=== PATIENT | female | born 1960 | race American Indian/Alaskan Native ===

== ENCOUNTER 2021-09-08 22:55 | Observation (INO) | payer OTHER ==
[2021-09-09 00:39] LABS: BUN/Creatinine Ratio 15; Blood Urea Nitrogen 12 mg/dL (7-17); Hemolysis Index 18
[2021-09-09 00:40] LABS: Basophils # (Auto) 0.1 K/mm3 (0.0-0.1); Basophils % (Auto) 0.8 % (0.0-1.8); Eosinophils # (Auto) 0.3 K/mm3 (0.0-0.4); Eosinophils % (Auto) 4.3 % (0.0-4.3); Hemoglobin 11.6 gm/dl (10.1-14.3); Lymphocytes % (Auto) 26.3 % (13.4-35.0); Mean Corpuscular HGB Conc 32 % (30-34); Mean Corpuscular Volume 82 fl (79-97); Monocytes # (Auto) 0.8 K/mm3 (0.0-0.8); Monocytes % (Auto) 10.6 % (0.0-7.3); Platelet Count 188 K/mm3 (140-440); Red Blood Count 4.49 M/mm3 (3.65-5.03); Red Cell Distribution Width 15.6 % (13.2-15.2)
--- NOTE | 2021-09-09 00:43 | XRay Report ---
CHEST 2 VIEWS INDICATION: Chest Pain. COMPARISON: None. FINDINGS: Support devices: None. Heart: Within normal limits. The aorta is tortuous and ectatic. Lungs/Pleura: Mild increased interstitial markings without localized infiltrate. No significant ple ural effusion. IMPRESSION: 1. No acute infiltrate. 2. Probable chronic interstitial thickening. Signer Name: Tavo Arriaza MD Signed: 09/09/2021 12:39 AM Workstation Name: [id number]
[2021-09-09] MEDS ORDERED: NITROGLYCERIN 2% OINT 1 GM TP ONE (07:31)
[2021-09-09] MEDS ORDERED: ASPIRIN 325 MG TAB PO ONE (07:31)
[2021-09-09] MEDS ORDERED: fentaNYL 100 MCG/2 ML INJ IV ONE (07:31)
--- NOTE | 2021-09-09 07:35 | Emergency Department Report ---
HPI - General Chief Complaint: Chest Pain Time Seen by Provider: 09/09/21 07:21 - HPI HPI: Room 25 The patient is a 60-year-old female present with chief complaint of chest pain. Patient states her symptoms began yesterday afternoon at 1400 with left-sided chest pain this been squeezing and intermittent in nature. Patient denies shortness of breath, nausea/vomiting or diaphoresis with the pain. Patient currently gives her chest squeezing a score of 4/10. Patient states her last stress test occurred approximate 3 years ago her last cardiac catheterization was well over 5 years ago ED Past Medical Hx - Past Medical History Hx Hypertension: Yes Hx Deep Vein Thrombosis: Yes Hx Asthma: Yes - Surgical History Hx Cholecystectomy: Yes Additional Surgical History: Hysterectomy - Family History Family history: no significant - Social History Smoking Status: Never Smoker Substance Use Type: None (Denies illicit drug use) - Medications Home Medications: Home Medications Medication Instructions Recorded Confirmed Last Taken Type Lisinopril/Hydrochlorothiazide 1 tab PO QDAY 12/11/14 12/11/14 Unknown History [Zestoretic 20-25 mg] hydrALAZINE [Apresoline TAB] 25 mg PO Q8HR #90 tab 12/11/14 Unknown Rx ED Review of Systems ROS: Stated complaint: CHEST PAIN Other details as noted in HPI Constitutional: denies: diaphoresis Eyes: denies: eye pain ENT: denies: throat pain Respiratory: denies: shortness of breath Cardiovascular: chest pain Endocrine: no symptoms reported Gastrointestinal: denies: nausea, vomiting Genitourinary: denies: dysuria Musculoskeletal: denies: back pain Neurological: denies: headache Physical Exam - Physical Exam Vital Signs: Vital Signs 09/08/21 09/09/21 23:32 07:00 Temperature 98.9 F Pulse Rate 83 68 Respiratory 16 18 Rate Blood Pressure 187/80 Blood Pressure 156/76 [Left] O2 Sat by Pulse 97 100 Oximetry Physical Exam: GENERAL: The patient is well-developed well-nourished female lying on stretcher not appearing to be in acute distress. [] HEENT: Normocephalic. Atraumatic. Extraocular motions are intact. Patient has moist mucous membranes. NECK: Supple. Trachea midline CHEST/LUNGS: Clear to auscultation. There is no respiratory distress noted. HEART/CARDIOVASCULAR: Regular. There is no tachycardia. There is no gallop rub or murmur. ABDOMEN: Abdomen is soft, nontender. Patient has normal bowel sounds. There is no abdominal distention. SKIN: There is no rash. There is no edema. There is no diaphoresis. NEURO: The patient is awake, alert, and oriented. The patient is cooperative. The patient has no focal neurologic deficits. The patient has normal speech. GCS 15 MUSCULOSKELETAL: There is no evidence of acute injury. ED Course Vital Signs 09/08/21 09/09/21 23:32 07:00 Temperature 98.9 F Pulse Rate 83 68 Respiratory 16 18 Rate Blood Pressure 187/80 Blood Pressure 156/76 [Left] O2 Sat by Pulse 97 100 Oximetry ED Medical Decision Making - Lab Data Result diagrams: 09/08/21 23:57 09/08/21 23:57 Laboratory Tests 09/08/21 09/08/21 09/08/21 23:57 23:57 23:57 WBC 7.6 RBC 4.49 Hgb 11.6 Hct 37.0 MCV 82 MCH 26 L MCHC 32 RDW 15.6 H Plt Count 188 Lymph % (Auto) 26.3 [place] % (Auto) 10.6 H Eos % (Auto) 4.3 Baso % (Auto) 0.8 Lymph # (Auto) 2.0 [place] # (Auto) 0.8 Eos # (Auto) 0.3 Baso # (Auto) 0.1 Seg Neutrophils % 58.0 Seg Neutrophils # 4.4 D-Dimer Sodium 142 Potassium 4.0 Chloride 101.7 Carbon Dioxide 29 Anion Gap 15 BUN 12 Creatinine 0.8 Estimated GFR > 60 BUN/Creatinine Ratio 15 Glucose 99 Calcium 10.0 Troponin T < 0.010 09/09/21 09/09/21 07:45 07:45 WBC RBC Hgb Hct MCV MCH MCHC RDW Plt Count Lymph % (Auto) [place] % (Auto) Eos % (Auto) Baso % (Auto) Lymph # (Auto) [place] # (Auto) Eos # (Auto) Baso # (Auto) Seg Neutrophils % Seg Neutrophils # D-Dimer 442.53 H Sodium Potassium Chloride Carbon Dioxide Anion Gap BUN Creatinine Estimated GFR BUN/Creatinine Ratio Glucose Calcium Troponin T < 0.010 - EKG Data -: EKG Interpreted by Md EKG shows normal: sinus rhythm Rate: normal - EKG Data When compared to previous EKG there are: changes noted Interpretation: nonspecific ST-T wave cj (New T wave inversions in leads I, aVL, V5, V6) - Radiology Data Radiology results: report reviewed (Chest x-ray, CT chest), image reviewed (Chest x-ray, CT chest) interpreted by me: Chest x-ray-no definite focal infiltrates, no pneumothorax [address] [address] XRay Report Signed Patient: STEVE RIOS MR#: [id number] : 1960 Acct:[id number] Age/Sex: 60 / F ADM Date: 09/08/21 Loc: ED Attending Dr: Ordering Physician: SOSA BROOKS MD Date of Service: 09/08/21 Procedure(s): XR chest routine 2V Accession Number(s): [id number] cc: SOSA BROOKS MD Fluoro Time In Minutes: CHEST 2 VIEWS INDICATION: Chest Pain. COMPARISON: None. FINDINGS: Support devices: None. Heart: Within normal limits. The aorta is tortuous and ectatic. Lungs/Pleura: Mild increased interstitial markings without localized infiltrate. No significant pleural effusion. IMPRESSION: 1. No acute infiltrate. 2. Probable chronic interstitial thickening. Signer Name: Tavo Arriaza MD Signed: 09/09/2021 12:39 AM Workstation Name: [id number] Transcribed By: ES Dictated By: Tavo Arriaza MD Electronically Authenticated By: Tavo Arriaza MD Signed Date/Time: 09/09/2138 DD/ TD/TT: [address] [address] Cat Scan Report Signed Patient: STEVE RIOS MR#: [id number] : 1960 Acct:[id number] Age/Sex: 60 / F ADM Date: 09/08/21 Loc: ED Attending Dr: Ordering Physician: MICHAEL PRINCE MD Date of Service: 09/09/21 Procedure(s): CT angio chest Accession Number(s): [id number] cc: MICHAEL PRINCE MD CTA CHEST WITH CONTRAST INDICATION / CLINICAL INFORMATION: Chest pain. TECHNIQUE: Axial CT images were obtained through the chest after injection of 85 cc Omnipaque 350 IV contrast. 3 plane MIP and/or 3D reconstructions were produced. All CT scans at this location are performed using CT dose reduction for ALARA by means of automated exposure co ntrol. COMPARISON: 2 views of the chest performed today. FINDINGS: PULMONARY EMBOLUS: None. THORACIC AORTA: Mild atherosclerotic calcification without acute abnormality. HEART: No significant abnormality. CORONARY ARTERY CALCIFICATION: Present -- Mild. MEDIASTINUM / GENET: No significant abnormality. PLEURA: No pleural effusion. No pneumothorax. LUNGS: No acute air space or interstitial disease. ADDITIONAL FINDINGS: None. UPPER ABDOMEN: No acute findings. A left adrenal myelolipoma measures 1.8 x 1.7 cm. SKELETAL STRUCTURES: No significant osseous abnormality. IMPRESSION: 1. No CT evidence for pulmonary embolism. 2. No acute findings. Signer Name: Marshal Smith MD Signed: 09/09/2021 10:17 AM Workstation Name: [id number] Transcribed By: [place] Dictated By: Marshal Smith MD Electronically Authenticated By: Marshal Smith MD Signed Date/Time: 09/09/21 1017 DD/ 1014 TD/TT: Print Cancel - Differential Diagnosis ACS, pericarditis, GERD, PE Critical care attestation.: If time is entered above; I have spent that time in minutes in the direct care of this critically ill patient, excluding procedure time. ED Disposition Clinical Impression: Chest pain Disposition: ADMITTED INPATIENT Is pt being admited?: Yes Does the pt Need Aspirin: Yes Condition: Fair Instructions: Nonspecific Chest Pain, Adult Referrals: MARIA TIM MD [Primary Care Provider] - 3-5 Days Time of Disposition: 10:29 (Care transferred to hospitalist (Dr. Kim)) Heart Score - HEART Score History: Moderately suspicious EKG: Non-specific Age: 45-65 Risk factors: 1-2 risk factors Troponin: < normal limit HEART Score: 4 - EKG Read Time Time EKG Completed: 23:48 EKG Read Time: 06:30
[2021-09-09] MEDS: ONDANSETRON 4 MG/2 ML INJ IV ONE ×2 (08:32→08:35)
--- NOTE | 2021-09-09 10:22 | Cat Scan Report ---
CTA CHEST WITH CONTRAST INDICATION / CLINICAL INFORMATION: Chest pain. TECHNIQUE: Axial CT images were obtained through the chest after injection of 85 cc Omnipaque 350 IV contrast. 3 plane MIP and/or 3D reconstructions were produced. All CT scans at this location are perf ormed using CT dose reduction for ALARA by means of automated exposure control. COMPARISON: 2 views of the chest performed today. FINDINGS: PULMONARY EMBOLUS: None. THORACIC AORTA: Mild atherosclerotic calcification without acute abnormality. HEART: No significant abnormality. CORONARY ARTERY CALCIFICATION: Present -- Mild. MEDIASTINUM / GENET: No significant abnormality. PLEURA: No pleural effusion. No pneumothorax. LUNGS: No acute air space or interstitial disease. ADDITIONAL FINDINGS: None. UPPER ABDOMEN: No acute findings. A left adrenal myelolipoma measures 1.8 x 1.7 cm. SKELETAL STRUCTURES: No significant osseous abnormality. IMPRESSION: 1. No CT evidence for pulmonary embolism. 2. No acute findings. Signer Name: Marshal Smith MD Signed: 09/09/2021 10:17 AM Workstation Name: [email or web address]
[2021-09-09] MEDS ORDERED: METOCLOPRAMIDE 10 MG/2 ML INJ IV PRN (13:37)
[2021-09-09] MEDS ORDERED: MORPHINE 2 MG/1 ML INJ IV PRN (13:37)
[2021-09-09] MEDS ORDERED: ACETAMINOPHEN 325 MG TAB PO PRN (13:37)
[2021-09-09] MEDS ORDERED: oxyCODONE /ACETAMINOPHEN 5-325MG TAB PO PRN (13:37)
[2021-09-09] MEDS ORDERED: ONDANSETRON 4 MG/2 ML INJ IV PRN (13:37)
--- NOTE | 2021-09-09 13:37 | History and Physical Report ---
History of Present Illness Date of examination: 09/09/21 Date of admission: 09/09/2021 Chief complaint: Chest pain since yesterday 2 PM History of present illness: 60-year-old -[place] female with history of hypertension on 2 blood pressure medications and no diabetes comes in for left-sided chest pain since yesterday at 2 PM chest pain is intermittent in nature retrosternal. Nonradiating. No diaphoresis. No palpitations. No shortness of breath or nausea or vomiting. Chest pain is like a squeezing sensation. For a scale of 1-10. Last stress test was about 5 years ago. Stress test was apparently negative. - Past Medical History --Hypertension: Yes --Deep Vein Thrombosis: Yes --Asthma: Yes - Surgical History --Cholecystectomy: Yes --Additional Surgical History: Hysterectomy - Family History --No Significant FH - Social History --Smoking Status: Never Smoker --Substance Use Type: None (Denies illicit drug use) - Medications Home Medications: Home Medications Medication Instructions Recorded Confirmed Last Taken Type Lisinopril/Hydrochlorothiazide 1 tab PO QDAY 12/11/14 12/11/14 Unknown History [Zestoretic 20-25 mg] hydrALAZINE [Apresoline TAB] 25 mg PO Q8HR #90 tab 12/11/14 Unknown Rx Review of Systems ROS: Stated complaint: CHEST PAIN Other details as noted in HPI Constitutional: denies: diaphoresis Eyes: denies: eye pain ENT: denies: throat pain Respiratory: denies: shortness of breath Cardiovascular: chest pain Endocrine: no symptoms reported Gastrointestinal: denies: nausea, vomiting Genitourinary: denies: dysuria Musculoskeletal: denies: back pain Neurological: denies: headache Medications and Allergies Allergies Allergy/AdvReac Type Severity Reaction Status Date / Time Penicillins Allergy Hives Verified 12/10/14 21:16 Home Medications Medication Instructions Recorded Confirmed Last Taken Type Lisinopril/Hydrochlorothiazide 1 tab PO QDAY 12/11/14 12/11/14 Unknown History [Zestoretic 20-25 mg] hydrALAZINE [Apresoline TAB] 25 mg PO Q8HR #90 tab 12/11/14 Unknown Rx Exam - Constitutional Vitals: Temp Pulse Resp BP Pulse Ox 98.9 F 68 18 156/73 100 09/08/21 23:32 09/09/21 08:34 09/09/21 11:00 09/09/21 08:34 09/09/21 11:00 General appearance: Present: no acute distress, well-nourished - EENT Eyes: Present: PERRL ENT: hearing intact, clear oral mucosa - Neck Neck: Present: supple, normal ROM - Respiratory Respiratory effort: normal Respiratory: bilateral: CTA - Cardiovascular Heart rate: 78 Rhythm: regular Heart Sounds: Present: S1 & S2. Absent: rub, click Details: No chest wall tenderness - Extremities Extremities: no ischemia, pulses symmetrical, No edema Peripheral Pulses: within normal limits - Abdominal General gastrointestinal: Present: soft, non-tender, non-distended, normal bowel sounds Female genitourinary: Present: normal - Rectal Rectal Exam: deferred - Integumentary Integumentary: Present: clear, warm, dry - Musculoskeletal Musculoskeletal: gait normal, strength equal bilaterally - Psychiatric Psychiatric: appropriate mood/affect, intact judgment & insight - Neurologic Neurologic: CNII-XII intact, moves all extremities - Allied Health Allied health notes reviewed: nursing, case management HEART Score - HEART Score History: Moderately suspicious EKG: Non-specific Age: 45-65 Risk factors: 1-2 risk factors Troponin: Troponin T < 0.010 ng/mL (0.00-0.029) 09/09/21 07:45 Troponin: < normal limit HEART Score: 4 - Critical Actions Critical Actions: 0-3 pts:0.9-1.7%risk of adverse cardiac event.Candidate for discharge Results - Labs CBC & Chem 7: 09/08/21 23:57 09/08/21 23:57 Labs: Laboratory Last Values WBC 7.6 K/mm3 (4.5-11.0) 09/08/21 23:57 RBC 4.49 M/mm3 (3.65-5.03) 09/08/21 23:57 Hgb 11.6 gm/dl (10.1-14.3) 09/08/21 23:57 Hct 37.0 % (30.3-42.9) 09/08/21 23:57 MCV 82 fl (79-97) 09/08/21 23:57 MCH 26 pg (28-32) L 09/08/21 23:57 MCHC 32 % (30-34) 09/08/21 23:57 RDW 15.6 % (13.2-15.2) H 09/08/21 23:57 Plt Count 188 K/mm3 (140-440) 09/08/21 23:57 Lymph % (Auto) 26.3 % (13.4-35.0) 09/08/21 23:57 [place] % (Auto) 10.6 % (0.0-7.3) H 09/08/21 23:57 Eos % (Auto) 4.3 % (0.0-4.3) 09/08/21 23:57 Baso % (Auto) 0.8 % (0.0-1.8) 09/08/21 23:57 Lymph # (Auto) 2.0 K/mm3 (1.2-5.4) 09/08/21 23:57 [place] # (Auto) 0.8 K/mm3 (0.0-0.8) 09/08/21 23:57 Eos # (Auto) 0.3 K/mm3 (0.0-0.4) 09/08/21 23:57 Baso # (Auto) 0.1 K/mm3 (0.0-0.1) 09/08/21 23:57 Seg Neutrophils % 58.0 % (40.0-70.0) 09/08/21 23:57 Seg Neutrophils # 4.4 K/mm3 (1.8-7.7) 09/08/21 23:57 D-Dimer 442.53 ng/mlDDU (0-234) H 09/09/21 07:45 Sodium 142 mmol/L (137-145) 09/08/21 23:57 Potassium 4.0 mmol/L (3.6-5.0) 09/08/21 23:57 Chloride 101.7 mmol/L (98-107) 09/08/21 23:57 Carbon Dioxide 29 mmol/L (22-30) 09/08/21 23:57 Anion Gap 15 mmol/L 09/08/21 23:57 BUN 12 mg/dL (7-17) 09/08/21 23:57 Creatinine 0.8 mg/dL (0.6-1.2) 09/08/21 23:57 Estimated GFR > 60 ml/min 09/08/21 23:57 BUN/Creatinine Ratio 15 % 09/08/21 23:57 Glucose 99 mg/dL (65-100) 09/08/21 23:57 Calcium 10.0 mg/dL (8.4-10.2) 09/08/21 23:57 Troponin T < 0.010 ng/mL (0.00-0.029) 09/09/21 07:45 Short CBC 09/08/21 Range/Units 23:57 WBC 7.6 (4.5-11.0) K/mm3 Hgb 11.6 (10.1-14.3) gm/dl Hct 37.0 (30.3-42.9) % Plt Count 188 (140-440) K/mm3 BMP 09/08/21 23:57 Sodium 142 Potassium 4.0 Chloride 101.7 Carbon Dioxide 29 BUN 12 Creatinine 0.8 Glucose 99 Calcium 10.0 Cardiac Enzymes 09/08/21 09/09/21 Range/Units 23:57 07:45 Troponin T < 0.010 < 0.010 (0.00-0.029) ng/mL - Imaging and Cardiology EKG: report reviewed (Sinus rhythm, no acute ST-T wave changes) Chest x-ray: report reviewed Imaging and Cardiology: Chest x-ray No acute infiltrates Probable chronic interstitial thickening 's Chest CTA No CT evidence for pulmonary embolism No acute findings Assessment and Plan Advance Directives: Yes (Full code) VTE prophylaxis?: Chemical Plan of care discussed with patient/family: Yes - Patient Problems (1) Acute coronary syndrome Current Visit: Yes Status: Acute Plan to address problem: Serial troponins and Lexiscan in the morning No chest for 20 minutes No reflux (2) Hypertension Current Visit: No Status: Chronic Qualifiers: Hypertension type: primary hypertension Qualified Code(s): I10 - Essential (primary) hypertension Plan to address problem: Continue antihypertensives and adjust medications (3) DVT prophylaxis Current Visit: Yes Status: Acute Plan to address problem: On anticoagulation GI prophylaxis (4) Advance care planning Current Visit: Yes Status: Acute Plan to address problem: Disease education collected, care plan discussed, diagnosis discussed, prognosis discussed patient is full code. Patient acknowledges understanding and agreement with care plan. +30 minutes.
[2021-09-09] MEDS ORDERED: NON-FORMULARY EACH (Lisinopril/Hydrochlorothiazide [Zestoretic 20-25 Mg] 1 EACH Tablet) PO SCH (13:45)
[2021-09-09] MEDS: FAMOTIDINE 20 MG/2 ML INJ IV SCH ×2 (16:25→22:04)
[2021-09-09] MEDS: HEPARIN 5,000 UNIT/1 ML VIAL SUB-Q SCH ×2 (16:25→22:04)
[2021-09-09] MEDS: hydrALAZINE 25 MG TAB PO SCH ×2 (16:26→22:03)
[2021-09-09] MEDS: VALSARTAN 160MG TAB PO SCH (21:15)
[2021-09-10 04:50] LABS: Alanine Aminotransferase 10 units/L (7-56); Albumin 3.8 g/dL (3.9-5); BUN/Creatinine Ratio 15; Blood Urea Nitrogen 12 mg/dL (7-17); Calcium 9.4 mg/dL (8.4-10.2); Hemolysis Index 8
[2021-09-10] MEDS: hydrALAZINE 25 MG TAB PO SCH ×2 (06:19→13:31)
[2021-09-10] MEDS ORDERED: REGADENOSON 0.4 MG/5 ML INJ IV ONE ×2 (06:50→10:43)
[2021-09-10] MEDS ORDERED: LISINOPRIL 20 MG TAB PO SCH (10:00)
[2021-09-10] MEDS ORDERED: hydroCHLOROthiazide 25 MG TAB PO SCH (10:00)
[2021-09-10] MEDS: VALSARTAN 160MG TAB PO SCH (11:31)
[2021-09-10] MEDS: HEPARIN 5,000 UNIT/1 ML VIAL SUB-Q SCH (11:32)
[2021-09-10] MEDS ORDERED: FAMOTIDINE 20 MG TAB PO SCH (12:00)
[2021-09-10] MEDS: FAMOTIDINE 20 MG/2 ML INJ IV SCH (12:30)
[2021-09-10 13:20] VITALS: BP 148/87
[2021-09-10] MEDS ORDERED: diphenhydrAMINE 25 MG/10 ML ORAL LIQUID PO ONE (13:20)
--- NOTE | 2021-09-10 14:13 | Discharge Summary ---
Providers - Providers Date of Admission: 09/09/21 13:37 Date of discharge: 09/10/21 Attending physician: NAHOMY KIM Primary care physician: MARIA TIM Hospitalization Condition: Fair Hospital course: History of Present Illness Date of examination: 09/10/21 Date of admission: 09/09/2021 Chief complaint: Chest pain since yesterday 2 PM History of present illness: 60-year-old -[place] female with history of hypertension on 2 blood pressure medications and no diabetes comes in for left-sided chest pain since yesterday at 2 PM chest pain is intermittent in nature retrosternal. Nonradiating. No diaphoresis. No palpitations. No shortness of breath or nausea or vomiting. Chest pain is like a squeezing sensation. For a scale of 1-10. Last stress test was about 5 years ago. Stress test was apparently negative. 09/10/2021 Troponins and Lexiscan was negative Patient was discharged on antihypertensives and aspirin Patient counseled about lifestyle modification and to lose weight and follow-up with bariatric surgery as outpatient her BMI is 56.7 - Patient Problems (1) Acute coronary syndrome Current Visit: Yes Status: Acute Plan to address problem: Serial troponins and Lexiscan in the morning No chest for 20 minutes No reflux (2) Hypertension Current Visit: No Status: Chronic Qualifiers: Hypertension type: primary hypertension Qualified Code(s): I10 - Essential (primary) hypertension Plan to address problem: Continue antihypertensives and adjust medications (3) morbid obesity Patient is morbidly obese and definitely needs a gastric bypass surgery or gastric sleeve. Patient counseled about follow-up with bariatric surgery Dr. Segal. (4) Advance care planning Current Visit: Yes Status: Acute Plan to address problem: Disease education collected, care plan discussed, diagnosis discussed, prognosis discussed patient is full code. Patient acknowledges understanding and agreement with care plan. +30 minutes. Disposition: [address] [place] [address] Final Discharge Diagnosis (Prints w/discharge instructions): Acute coronary syndrome. Hypertension. Morbid obesity Time spent for discharge: 32 minutes - Discharge Diagnoses (1) Acute coronary syndrome Status: Acute (2) Hypertension Status: Chronic Qualifiers: Hypertension type: primary hypertension Qualified Code(s): I10 - Essential (primary) hypertension (3) DVT prophylaxis Status: Acute (4) Advance care planning Status: Acute Core Measure Documentation - Palliative Care Palliative Care/ Comfort Measures: Not Applicable - Core Measures Any of the following diagnoses?: none Exam - Constitutional Vitals: Temp Pulse Resp BP Pulse Ox 98.1 F 91 H 16 148/87 100 09/10/21 07:33 09/10/21 13:20 09/10/21 08:10 09/10/21 13:20 09/10/21 08:10 General appearance: Present: no acute distress, well-nourished - EENT Eyes: Present: PERRL ENT: hearing intact, clear oral mucosa - Neck Neck: Present: supple, normal ROM - Respiratory Respiratory effort: normal Respiratory: bilateral: CTA - Cardiovascular Heart rate: 78 Rhythm: regular Heart Sounds: Present: S1 & S2. Absent: rub, click - Extremities Extremities: pulses symmetrical, No edema Peripheral Pulses: within normal limits - Abdominal General gastrointestinal: Present: soft, non-tender, non-distended, normal bowel sounds Female genitourinary: Present: normal - Integumentary Integumentary: Present: clear, warm, dry - Musculoskeletal Musculoskeletal: gait normal, strength equal bilaterally - Psychiatric Psychiatric: appropriate mood/affect, intact judgment & insight - Neurologic Neurologic: CNII-XII intact, moves all extremities Plan Activity: no restrictions Diet: low fat, low cholesterol, low salt Follow up with: MARIA TIM MD [Primary Care Provider] - 3-5 Days BOBBI SEGAL MD [Staff Physician] - 7 Days
--- NOTE | 2021-09-11 08:47 | Nuclear Medicine Report ---
APPROVED REPORT Exam: Nuclear Stress Test Indication: Chest pain Patient Location: [address] [place] [address] Room #: A454 Ht: 5 ft 2 in Wt: 310 lbs BSA: 2.30 m2 HR: 74 bpmBP: 198/96 mmHgBMI: 56.69 Rhythm: Sinus Rhythm Stress Test Details Stress Test: Pharmacologic stress testing performed using 0.4 mg of regadenoson per 5 mL given IV over 10 seconds. Reason for pharmacologic stress test: physical limitation. HR Resting HR: 74 bpm Max HR Achieved: 121 bpm Max Heart Rate (APMHR): 158.340258 bpm Target HR (85% APMHR): 134.000686 bpm % of APMHR: 76.58 Recovery HR: 99 bpm HR response to stress: Normal HR response to stress BP Resting BP: 175/93 mmHg Max BP: 200/99 mmHg Recovery BP: 190/95 mmHg BP response to stress: Abnormal hypertensive response to stress. ECG Resting ECG: Sinus Rhythm Stress ECG: Sinus Tachycardia Arrhythmia: None Recovery ECG: Sinus Rhythm Recovery Arrhythmia: None Clinical Reason for Termination: Completed protocol Stress Symptoms: Headache NM EXAM: Myocardial Perfusion REST/STRESS Imaging Protocol: Rest Tc-99m/Stress Tc-99m 1 day Resting Data Rest SPECT myocardial perfusion imaging was performed in supine position 45 minutes following the intravenous injection of 10 mCi of Tc-99m Myoview. Time of rest injection: 0700 Pharmacologic Stress Pharmacologic stress test was performed by injecting Regadenoson 0.4 mg IV push followed by the intravenous injection of 28 mCi of Tc-99m Myoview. Time of stress injection: 0942 Gated Stress SPECT was performed 30 minutes after stress injection. The images were gated to evaluate regional wall motion and calculate left ventricular ejection fraction. Study Data TID = 1.08. Perfusion Wall Motion Normal left ventricular size and function with no regional wall motion abnormalities. Nuclear Conclusion ECG Findings: negative for ischemia Clinical Findings: negative for ischemia Nuclear Findings: negative for ischemia Exercise Capacity: not assessed Left Ventricular Function: normal Normal study. No scintigraphic evidence for myocardial ischemia or scar. Normal left ventricular size and function with no regional wall motion abnormalities.
--- NOTE | 2021-09-12 11:59 | Electrocardiograph Report ---
[facility] Test Date: 2021-09-08 Test Time: 23:48:41 Pat Name: STEVE RIOS Department: Room: A454 Gender: F [employer]phalt [employer]ender: NIMO : 1960 Requested By: MICHAEL PRINCE Order Number: [id number] Reading MD: Cong Das Measurements Intervals [place] Rate: 74 P: 45 GA: 136 QRS: 17 QRSD: 90 T: 232 QT: 382 QTc: 425 Interpretive Statements Sinus rhythm Atrial premature complexes Probable left atrial enlargement Diffuse nonspecific T wave abnormality No previous ECG available for comparison Electronically Signed On 09-12-2021 11:58:56 EDT by Cong Das
== END 2021-09-10 18:09 | disposition home or self-care (01) ==
LOC: ED 22:55 → 4A 09-09 13:37 → INTOOBSV 09-09 13:37 → 4A 09-09 20:28
PROVIDERS: ADMIT Internal Medicine; ATTEND Internal Medicine
DX: I24.9 Acute ischemic heart disease, unspecified (principal); I10 Essential (primary) hypertension; J45.909 Unspecified asthma, uncomplicated; E66.01 Morbid (severe) obesity due to excess calories; Z90.710 Acquired absence of both cervix and uterus; Z86.718 Personal history of other venous thrombosis and embolism; Z68.43 Body mass index [BMI] 50.0-59.9, adult
CPT/HCPCS: 36415; 71046; 71275; 78452; 80053; 84484; 85025; 85379; 93005; 93017; 96372; 96374; 99285; A9502; G0378; J1644; J2405; J2785; J3010; J3490; Q0163; Q9967; 80048